=== PATIENT | female | born 1935 | race Caucasian/White ===

== ENCOUNTER → 2019-04-12 | Outpatient (CLI) | payer MEDICARE, OTHER ==
[~2019-04-12] MED LIST: AMLODIPINE-BEN1 EAC2 PO; BENAZEPRIL-HCT1 EA10 PO; GABAPENTIN 100100 MG PO; LEVAQUIN 500 M500 M2 PO; LOPRESSOR100 M1 PO; PRAVACHOL40 MG PO; TOPROL XL100 MG PO; VENTOLIN HFA 1818 GM INH
== END ==
LOC: M.CT 14:06
DX: K57.30 Diverticulosis of large intestine without perforation or abscess without bleeding (principal); N28.89 Other specified disorders of kidney and ureter; I25.10 Atherosclerotic heart disease of native coronary artery without angina pectoris; M16.0 Bilateral primary osteoarthritis of hip; M47.819 Spondylosis without myelopathy or radiculopathy, site unspecified

== ENCOUNTER 2019-11-05 12:01 | Emergency (ER) | payer MEDICARE, OTHER ==
[~2019-11-05] VITALS: Ht 160 cm; Wt 63.5 kg
[2019-11-05 12:44] LABS: ABSOLUTE EOSINOPHILS 0.1 thou/uL (0.0-0.7); ABSOLUTE LYMPHOCYTES 1.4 thou/uL (0.8-5.3); ABSOLUTE MONOCYTES 0.6 thou/uL (0.0-1.2); ABSOLUTE NEUTROPHILS 6.7 thou/uL (1.6-8.1); BASOPHILS 0.5 %; EOSINOPHILS 0.8 %; HEMATOCRIT 35.1 % (37.0-47.0); HEMOGLOBIN 12.5 gm/dL (12.0-15.0); LYMPHOCYTES 16.1 %; MCH 32.7 pg (26.0-34.0); MCHC 35.7 g/dL (28.0-37.0); MCV 91.6 fL (80.0-100.0); MONOCYTES 6.5 %; MPV 6.9 fl. (7.2-11.1); NUCLEATED RBCS 0 /100WBC; PLATELET COUNT* 256 thou/uL (150-400); POLYS 76.1 %; RBC 3.83 mil/uL (4.20-5.00); RDW-CV 13.9 % (10.5-14.5); WBC 8.7 thou/uL (4.0-11.0)
[2019-11-05 12:51] LABS: CALCIUM 8.7 mg/dL (8.5-10.1); POTASSIUM 3.3 mmol/L (3.5-5.1)
[2019-11-05 12:53] LABS: APTT 23.8 Seconds (25.0-31.3); PROTIME 10.3 Seconds (9.20-11.50)
[2019-11-05] MEDS ORDERED: KEFLEX500 M1 PO ×3 (14:11→14:25)
[2019-11-05] MEDS ORDERED: KLOR-CON 10 ER10 MEQ PO ×3 (14:11→14:25)
[2019-11-05 14:32] VITALS: BP 158/68
--- NOTE | 2019-11-06 10:13 | EKG ---
[place] [address] ELECTROCARDIOGRAM REPORT Name: BHUPENDRAFRANCESCA Valdivia Room: [facility]#: [id number] Admission: 11/05/19 Attend Phys: Discharge: 11/05/19 Date of : 39 Date of Service: 11/05/19 1229 Report #: [id number] THIS REPORT FOR: //name// [facility] ED Test Date: 2019-11-05 Test Time: 12:29:12 Pat Name: FRANCESCA HUIZAR Department: Room: Gender: F Service Desk Team Lead: : 1935 Requested By: Lew Mendoza Order Number: [id number] MD: Roddy Rivera Measurements Intervals [place] Rate: 69 P: [place]: QRS: 25 QRSD: 96 T: 60 QT: 422 QTc: 452 Interpretive Statements sinus rhythm Low voltage, precordial leads RSR' in V1 or V2, right VCD or RVH Compared to ECG 12/01/2014 14:18:54 Low QRS voltage now present Electronically Signed On 11-06-2019 10:13:25 CDT by Roddy Rivera [email or web address] <ELECTRONICALLY SIGNED> By: Roddy Rivera MD, [facility] 11/06/19 1013 1229 1229 Roddy Rivera MD, [facility] /EPI
== END 2019-11-05 14:33 | disposition home or self-care (01) ==
LOC: M.ERS 12:01
PROVIDERS: Nurse Practitioner Psychiatric/Mental Health
DX: M79.661 Pain in right lower leg (principal); E87.6 Hypokalemia; E87.1 Hypo-osmolality and hyponatremia; I10 Essential (primary) hypertension; N80.9 Endometriosis, unspecified; E78.00 Pure hypercholesterolemia, unspecified; Z88.0 Allergy status to penicillin; Z88.8 Allergy status to other drugs, medicaments and biological substances; Z98.51 Tubal ligation status

== ENCOUNTER 2020-12-24 08:33 | Emergency (ER) | payer MEDICARE, OTHER ==
[~2020-12-24] VITALS: Ht 160 cm; Wt 63.5 kg
[~2020-12-24 08:33] MED LIST changes: +KEFLEX500 M1 PO; +KLOR-CON 10 ER10 MEQ PO
[2020-12-24 09:00] LABS: ABSOLUTE BASOPHILS 0.1 thou/uL (0.0-0.2); ABSOLUTE EOSINOPHILS 0.1 thou/uL (0.0-0.7); ABSOLUTE NEUTROPHILS 9.2 thou/uL (1.6-8.1); BASOPHILS 0.4 %; EOSINOPHILS 1.1 %; HEMATOCRIT 35.4 % (37.0-47.0); LYMPHOCYTES 16.3 %; MCH 30.9 pg (26.0-34.0); MCHC 33.8 g/dL (28.0-37.0); MCV 91.3 fL (80.0-100.0); MONOCYTES 8.2 %; MPV 7.7 fl. (7.2-11.1); NUCLEATED RBCS 0 /100WBC; PLATELET COUNT* 275 thou/uL (150-400); RBC 3.88 mil/uL (4.20-5.00); RDW-CV 13.8 % (10.5-14.5); WBC 12.4 thou/uL (4.0-11.0)
--- NOTE | 2020-12-24 09:19 | EKG ---
[place] [address] ELECTROCARDIOGRAM REPORT Name: FRANCESCA HUIZAR Room: [facility]#: [id number] Admission: Attend Phys: Discharge: Date of : 39 Date of Service: 12/24/20 0845 Report #: [id number] THIS REPORT FOR: //name// [facility] ED Test Date: 2020-12-24 Test Time: 08:45:30 Pat Name: FRANCESCA HUIZAR Department: Room: Gender: F Electrical Tests Supervisor: [place] : 1935 Requested By: Gregorio Mason Order Number: [id number] MD: Roddy Rivera Measurements Intervals [place] Rate: 64 P: 0 MA: 146 QRS: 9 QRSD: 94 T: 13 QT: 434 QTc: 448 Interpretive Statements Sinus rhythm Low voltage, precordial leads RSR' in V1 or V2, probably normal variant Borderline repolarization abnormality Compared to ECG 11/05/2019 12:29:12 no change Electronically Signed On 12-24-2020 9:19:40 CDT by Roddy Rivera [email or web address] <ELECTRONICALLY SIGNED> By: Roddy Rivera MD, FAC 12/24/20 0919 0845 0845 Roddy Rivera MD, [facility] /EPI
[2020-12-24 09:45] LABS: CALCIUM 8.9 mg/dL (8.5-10.1); CREATININE 1.2 mg/dL (0.6-1.3); POTASSIUM 3.7 mmol/L (3.5-5.1)
[2020-12-24 09:49] LABS: ALBUMIN 3.6 g/dL (3.4-5.0); TOTAL BILIRUBIN 0.6 mg/dL (<0.1-1.0); TOTAL PROTEIN 7.9 g/dL (6.4-8.2)
[2020-12-24 11:23] LABS: URINE BILIRUBIN NEGATIVE (Negative); URINE BLOOD TRACE (Negative); URINE CLARITY SL CLOUDY; URINE COLOR YELLOW; URINE GLUCOSE-RANDOM NEGATIVE (Negative); URINE KETONES NEGATIVE (Negative); URINE NITRITE-REFLEX NEGATIVE (Negative); URINE PROTEIN NEGATIVE (Negative); URINE SPECIFIC GRAVITY <= 1.005 (1.005-1.030); URINE UROBILINOGEN 0.2 E.U./dl (0.2-1.0)
[2020-12-24 11:43] LABS: URINE LEUKOCYTES-REFLEX 3+ (Negative)
[2020-12-24 11:49] LABS: BACTERIA-REFLEX None Seen /HPF (None Seen); SQUAMOUS >10 Many /LPF (0-3); URINE RBC 3-10 Few /HPF (0-2); URINE WBC-REFLEX >25 Many /HPF (0-5)
[2020-12-24 11:50] LABS: CASTS None Seen /LPF (None Seen); CRYSTALS None Seen /LPF (None Seen)
[2020-12-24] MEDS ORDERED: CEPHALEXIN500 MG PO (12:14)
[2020-12-24] MEDS ORDERED: ZOFRAN ODT4 MG PO (12:14)
[2020-12-24 12:33] VITALS: BP 147/62
== END 2020-12-24 12:33 | disposition home or self-care (01) ==
LOC: M.ERS 08:33
PROVIDERS: Emergency Medicine Emergency Medical Services
DX: N39.0 Urinary tract infection, site not specified (principal); K64.4 Residual hemorrhoidal skin tags; I10 Essential (primary) hypertension; E78.00 Pure hypercholesterolemia, unspecified; Z98.51 Tubal ligation status; Z79.899 Other long term (current) drug therapy; Z88.8 Allergy status to other drugs, medicaments and biological substances; Z88.0 Allergy status to penicillin